=== PATIENT | female | born 1975 | race Caucasian/White ===

== ENCOUNTER 2022-11-27 13:12 | Emergency (ER) | payer OTHER ==
[~2022-11-27] VITALS: Ht 167.6 cm; Wt 68.9 kg
[~2022-11-27 13:12] MED LIST: BREO ELLIPTA I1 EACH; CATAFLAM50 MG PO; ORPH100T PO; SYNTHROID50 MCG
[2022-11-27] MEDS ORDERED: PRALUENT P75 MG/1 ML SQ (13:28)
== END 2022-11-27 14:34 | disposition home or self-care (01) ==
LOC: ER 13:12
DX: R20.2 Paresthesia of skin (principal); E03.9 Hypothyroidism, unspecified

== ENCOUNTER 2024-03-04 10:12 | Emergency (ER) | payer OTHER ==
[~2024-03-04] VITALS: Ht 167.6 cm; Wt 68.0 kg
[~2024-03-04 10:12] MED LIST changes: +PRALUENT P75 MG/1 ML SQ
[2024-03-04] MEDS ORDERED: 0.9 % SODIUM CHLORIDE 1,000 ML IV STA (11:31)
[2024-03-04] MEDS ORDERED: FAMOtidine 10 MG/ML (4ML VIAL) IV STA (11:32)
[2024-03-04] MEDS ORDERED: ONDANSETRON HCL 2 MG/ML VIAL IV STA (11:32)
[2024-03-04] MEDS ORDERED: HYOSCYAMINE SULFATE 0.125 MG TAB.SUBL SL ONE (11:45)
[2024-03-04 11:57] LABS: HEMATOCRIT 37.1 % (36.0-45.00); HEMOGLOBIN 12.4 g/dL (12.0-15.00); MEAN CELL VOLUME 82.8 fL (80.00-100.00); MEAN CORPUSCULAR HEMOGLOBIN 27.6 pg (27.00-32.0); MEAN CORPUSCULAR HGB CONC 33.4 g/dl (32.0-36.0); PLATELET COUNT 265 K/uL (150-450); RED BLOOD COUNT 4.49 M/uL (4.00-6.00); RED CELL DISTRIBUTION WIDTH 15.4 % (11.5-14.5)
[2024-03-04 12:17] LABS: CALCIUM 9.7 mg/dL (8.5-10.1); CREATININE SERUM 0.74 mg/dL (0.55-1.02); GFR 83.41; POTASSIUM 4.18 mEq/L (3.5-5.1)
== END 2024-03-04 17:11 | disposition home or self-care (01) ==
LOC: ER 10:14
PROVIDERS: General Practice
DX: K52.89 Other specified noninfective gastroenteritis and colitis (principal); E03.8 Other specified hypothyroidism

== ENCOUNTER 2024-10-21 07:25 | Emergency (ER) | payer OTHER ==
[~2024-10-21] VITALS: Ht 167.6 cm; Wt 69.4 kg
[2024-10-21] MEDS ORDERED: FAMOtidine 10 MG/ML (4ML VIAL) IV PUSH ONE (08:30)
[2024-10-21] MEDS ORDERED: KETOROLAC TROMETHAMINE 30 MG VIAL IU ONE (08:30)
[2024-10-21] MEDS ORDERED: ONDANSETRON HCL 2 MG/ML VIAL IV ONE (08:30)
[2024-10-21] MEDS ORDERED: 0.9 % SODIUM CHLORIDE 1,000 ML IV ONE (08:30)
[2024-10-21 08:49] LABS: HEMATOCRIT 38.4 % (36.0-45.00); HEMOGLOBIN 12.4 g/dL (12.0-15.00); MEAN CELL VOLUME 84.3 fL (80.00-100.00); MEAN CORPUSCULAR HEMOGLOBIN 27.3 pg (27.00-32.0); MEAN CORPUSCULAR HGB CONC 32.4 g/dl (32.0-36.0); PLATELET COUNT 268 K/uL (150-450); RED BLOOD COUNT 4.55 M/uL (4.00-6.00); RED CELL DISTRIBUTION WIDTH 15.1 % (11.5-14.5)
[2024-10-21 09:15] LABS: INR 0.96; PARTIAL THROMBOPLASTIN TIME 23.3 SECONDS (22.0-34.0); PROTHROMBIN TIME 10.5 SECONDS (9.0-11.5)
[2024-10-21 09:24] LABS: ALBUMIN 3.7 gm/dL (3.4-5.0); BILIRUBIN TOTAL 0.38 mg/dL (0.3-1.2); CALCIUM 9.2 mg/dL (8.5-10.1); CREATININE SERUM 0.84 mg/dL (0.55-1.02); GFR 71.77; GLOBULINA 4.2 G/DL (2.4-3.5); POTASSIUM 4.09 mEq/L (3.5-5.1); TOTAL PROTEIN 7.9 gm/dL (6.4-8.2)
[2024-10-21] MEDS ORDERED: PROMETHAZINE HCL 50 MG/ML AMPUL IM ONE (10:30)
[2024-10-21] MEDS ORDERED: PEPCID AC20 MG PO (11:57)
[2024-10-21] MEDS ORDERED: NORFLEX100MG PO (11:57)
[2024-10-21] MEDS ORDERED: KETO10TA2 PO (11:57)
[2024-10-21] MEDS ORDERED: ZOFRAN8 MG PO (11:57)
[2024-10-21] MEDS ORDERED: KETOROLAC TROMETHAMINE 60 MG VIAL IM ONE (12:00)
[2024-10-21] MEDS ORDERED: ORPHENADRINE CITRATE 30 MG/ML AMPUL IM ONE (12:00)
[2024-10-21 12:16] LABS: URINE APPEARANCE Clear; URINE BILIRRUBIN Negative (NEGATIVE); URINE BLOOD Moderate; URINE COLOR Yellow; URINE GLUCOSE Negative (NEGATIVE); URINE KETONE Trace (NEGATIVE); URINE LEUKOCYTE Negative; URINE NITRATE Negative; URINE PROTEIN Negative (NEGATIVE); URINE UROBILINOGEN 0.2 E.U./dl
[2024-10-21 13:03] LABS: URINE BACTERIA 8.5 uL (0.0-1933); URINE EPITHELIAL CELLS 1.5 uL (0.0-38.8); URINE RBC 222.7 uL (0.0-20.8); URINE WBC 3.6 uL (0.0-23.2)
[2024-10-21 13:16] LABS: URINE CAST 0.29 uL (0.0-1.40)
== END 2024-10-21 12:13 | disposition home or self-care (01) ==
LOC: ER 07:27
PROVIDERS: General Practice
DX: N83.201 Unspecified ovarian cyst, right side (principal); E03.9 Hypothyroidism, unspecified